=== PATIENT | male | born 1985 | race Caucasian/White ===

== ENCOUNTER 2023-09-28 08:35 | Outpatient (CLI) | payer BC, SELFPAY | END 2023-09-28 08:36 | disposition home or self-care (01) | LOC: NFLDREF 09-30 06:43 | PROVIDERS: PCP Internal Medicine; Referring Provider Internal Medicine; Visit Provider Internal Medicine | DX: Z13.228 Encounter for screening for other metabolic disorders (principal) | CPT/HCPCS: 80053; 80061 ==

== ENCOUNTER 2024-09-23 08:54 | Outpatient (CLI) | payer BC, SELFPAY ==
--- OUTSIDE RECORDS SUMMARY | 2024-09-23 08:56 | XMS_ITS | Clinical Summary ---
Author Organization [facility] Address [place], [place] [address] Care Team Providers Care Filing Writer Name Role Phone Kenyetta Hunt Primary Care Provider Allergies No known active allergies Social History Tobacco Use Types Packs/Day Years Used Date Smoking Tobacco: Never Assessed Social Connections Answer Date Recorded Frequency of Communication with Friends and Fami ly Not on file 10/15/2023 Sex and Gender Information Value Date Recorded Sex Assigned at Not on file Gender Identity Not on file Sexual Orientation Not on file Plan of Treatment Health Maintenance Due Date Last Done Comments Tdap 1998 Depression screening for age 12+ 1999 HIV for age 15-65 2002 BMI (ht and wt on same day) for age 18+ 2005 Hepatitis C screening for ag e 18-79 2005 Tetanus booster 2007 Lipids for age 35-44 2022 COVID-19 vaccine series ( season) 2024 03/25/2021, 02/11/2021 Influenza for age 9-49 07/06/2024 Pneumococcal series for age 6-64 Aged Out No longer eligible b ased on patient's age to complete this topic Care Teams Filing Writer Relationship Specialty Start Date End Date MarileeWaqari [address] [place] [id number] PCP - General 10/15/23
--- OUTSIDE RECORDS SUMMARY | 2024-09-23 08:57 | XMS_ITS | Referral Summary ---
Author Organization [facility] Address [address] [place] [id number] Care Team Providers Care Supervisor Mending Name Role Phone Elsewhere, Pcp Primary Care Provider Unavailabl e Source Comments Patient records contain information from all sites at [facility]. For routine questions regarding patient records, call [phone] during business hours, M-F 8:00 AM - 5:00 PM Central Time. Record requests for emergency care only can be directed to [phone] at any time.[facility] Allergies No known active allergies Medications metFORMIN XR (GLUCOPHAGE-XR) 500 mg 24 hr tablet 500 mg. 09/19/2021 Active lisinopriL (PRINIVIL,ZESTRI L) 2.5 mg tablet Take 2.5 mg by mouth. 12/20/2021 Active glipiZIDE (GLUCOTROL) 5 mg tablet Take 5 mg by mouth. 12/20/2021 Active hydrocortisone (HYTONE) 2.5 % cream 09/10/2023 Active Active Problems Problem Noted Date Diagnosed Date Apnea Sleep Obstructive 09/19/2021 Diabetes Mellitus Type 2 03/24/2021 Obesity Body Mass Index 30-39.9 Adult 10/07/2019 Immunizations Name Administration Dates Next Due PPSV23 09/19/2021 Tdap 09/19/2021 influenza vaccine quad (FLUZ ONE/FLUARIX) (6 months and older)(PF) 09/19/2021 Social History Tobacco Use Types Packs/Day Years Used Date Smoking Tobacco: Never Smokeless Tobacco: Never Tobacco Cessation:Counseling Given: Not Answered Alcohol Use Standard Drinks/Week Comments Never 0 (1 standard drink = 0.6 oz pur e alcohol) Overall Financial Resource Strain (CARDIA) Answe r Date Recorded How hard is it for you to pa y for the very basics like food, housing, medical care, and heating? Not very hard 09/18/2023 PHQ-2 Answer Date Recorded PHQ-2 Score 0 09/18/2023 Exercise Vital Sign Answer Date Recorde d On average, how many days pe r week do you engage in moderate to strenuous exercise (like a brisk walk)? 3 days 09/18/2023 On average, how many minutes do you engage in exercise at this level? 10 min 09/18/2023 Hunger Vital Sign Answer Date Recorded Within the past 12 months, y ou worried that your food would run out before you got the money to buy more. Never true 09/18/20 Within the past 12 months, t he food you bought just didn't last and you didn't have money to get more. Never true 09/18/2023 PRAPARE - Transportation Answer Date Re corded In the past 12 months, has l ack of transportation kept you from medical appointments or from getting medications? No 09/05 In the past 12 months, has l ack of transportation kept you from meetings, work, or from getting things needed for daily living? No 09/18/2023 Nutrition Answer Date Recorded On average, how many serving s of fruits and vegetables do you eat per day (serving size is equal to 1 cup or approximately the size of a tennis ball)? 3-5 09/18/2023 Dental Answer Date Recorded Dental: Regular Dentist Yes 09/18/20 Employment Answer Date Recorded Employment status Employed and actively working without restrictions 09/18/2023 Housing Stability Answer Date Recorded What is your living situation today? I have a [facility] place to live 09/18/2023 Sex and Gender Information Value Date Recorded Sex Assigned at Male 09/18/2023 5:28 PM TECHNICAL ADVISOR Legal Sex Male 10:26 AM TECHNICAL ADVISOR Gender Identity Male 09/18/2023 5:28 PM TECHNICAL ADVISOR Sexual Orientation Straight 09/18/2023 5: 28 PM TECHNICAL ADVISOR Last Filed Vital Signs Vital Sign Reading Time Taken Comments Blood Pressure 131/77 10/11/2023 5:45 AM TECHNICAL ADVISOR Pulse 90 10/11/2023 5:45 AM TECHNICAL ADVISOR Temperature 36.2 C (97.2 F) 10/11/2023 4:46 AM TECHNICAL ADVISOR Respiratory Rate 18 10/11/2023 4:46 AM TECHNICAL ADVISOR Oxygen Saturation 96% 10/11/2023 5:45 AM TECHNICAL ADVISOR Inhaled Oxygen Concentration - - Weight 129 kg (283 lb 8.2 oz) 10/11/2023 4:45 AM TECHNICAL ADVISOR Height - - Body Mass Index - - Plan of Treatment Not on file Insurance [facility] [address] [place] [id number] Care Teams Supervisor Mending Relationship Specialty Start Date End Date Elsewhere, Pcp PCP - General Internal Medicine 09/19/23
--- OUTSIDE RECORDS SUMMARY | 2024-09-23 08:57 | XMS_ITS | Clinical Summary ---
Author Organization [facility] Address [address] [place] [address] Care Team Providers Care Data Analytics Developer Name Role Phone Elsewhere, Pcp Primary Care Provider Unavailabl e Source Comments Patient records contain information from all sites at [facility]. For routine questions regarding patient records, call [phone] during business hours, M-F 8:00 AM - 5:00 PM Central Time. Record requests for emergency care only can be directed to [phone] at any time.[facility] Allergies No known active allergies Medications metFORMIN [...] your living situation today? I have a [facility] place to live 09/18/2023 Sex and Gender Information Value Date Recorded Sex Assigned at Male 09/18/2023 5:28 PM PORTAL ADMINISTRATOR Legal Sex Male 10:26 AM PORTAL ADMINISTRATOR Gender Identity Male 09/18/2023 5:28 PM PORTAL ADMINISTRATOR Sexual Orientation Straight 09/18/2023 5: 28 PM PORTAL ADMINISTRATOR Last Filed Vital Signs Vital Sign Reading Time Taken Comments Blood Pressure 131/77 10/11/2023 5:45 AM PORTAL ADMINISTRATOR Pulse 90 10/11/2023 5:45 AM PORTAL ADMINISTRATOR Temperature 36.2 C (97.2 F) 10/11/2023 4:46 AM PORTAL ADMINISTRATOR Respiratory Rate 18 10/11/2023 4:46 AM PORTAL ADMINISTRATOR Oxygen Saturation 96% 10/11/2023 5:45 AM PORTAL ADMINISTRATOR Inhaled Oxygen Concentration - - Weight 129 kg (283 lb 8.2 oz) 10/11/2023 4:45 AM PORTAL ADMINISTRATOR Height - - Body Mass Index - - Plan of Treatment Health Maintenance Due Date Last Done Comments Diabetic Office Visit with Foot Exam 1987 Dilated Eye Exam 1987 HIV Screening 1987 Hepatitis C Screening 1987 Urine Albumin 1987 Hepatitis B Vaccines (1 of 3 - 19+ 3-dose series) 2006 Pneumococcal vaccine (0-64 years) (2 of 2 - PCV) 09/19/2022 09/19/2021 Hemoglobin A1C 03/26/2023 09/26/2022, 12/06, 09/19/2021, Additional history exists Creatinine Level (Kidney Function Test) 09/26/2023 09/26/2022, 09/19/2021, 09/27/2020 Lipid (Cholesterol) Screening 09/26/2023 09/26/2022, 09/19/2021, 09/27/2020 Potassium Level 09/26/2023 09/26/2022, 09/19/2021 Sodium Level 09/26/2023 09/26/2022, 09/19/2021 Depression Screening (Annual PHQ-2) 11/05/2023 COVID-19 Vaccine ( season) 2024 03/25/2021, 02/11/2021 Influenza Vaccine (#1) 2024 09/19/2021 Office Visit for Blood Pressure Check / Re-check 09/19/2024 09/19/2023 DTaP,Tdap,and Td Vaccines (2 - Td or Tdap) 09/19/2031 09/19/2021 HPV Vaccines Aged Out No longer eligi ble based on patient's age to complete this topic IPV Vaccines Aged Out No longer eligi ble based on patient's age to complete this topic Insurance [facility] Care Teams Data Analytics Developer Relationship Specialty Start Date End Date Elsewhere, Pcp PCP - General Internal Medicine 09/19/23
--- OUTSIDE RECORDS SUMMARY | 2024-09-23 08:57 | XMS_ITS ---
Author Organization [facility] Address [address] [place] [address] Care Team Providers Care Assistant Shift Supervisor Name Role Phone Unavailable Unavailable Unavailable Surgery Details Not on file Complications Check Surgery Details section. Procedure Estimated Blood Loss Check Surgery Details section. Procedure Findings Check Surgery Details section. Procedure Specimens Taken Check Surgery Details section.
== END 2024-09-23 08:55 | disposition home or self-care (01) ==
PROVIDERS: PCP Internal Medicine; Visit Provider Internal Medicine
DX: Z00.00 Encounter for general adult medical examination without abnormal findings (principal); E11.9 Type 2 diabetes mellitus without complications
CPT/HCPCS: 80053; 80061

== ENCOUNTER 2025-09-28 08:06 | Outpatient (CLI) | payer BC, SELFPAY | END 2025-09-28 08:07 | disposition home or self-care (01) | LOC: NFLDREF 10-02 18:58 | PROVIDERS: PCP Internal Medicine; Referring Provider Internal Medicine; Visit Provider Internal Medicine | DX: E11.9 Type 2 diabetes mellitus without complications (principal); Z13.9 Encounter for screening, unspecified | CPT/HCPCS: 80053 ==